=== PATIENT | male | born 1975 | race Caucasian/White ===

== ENCOUNTER 2016-10-29 22:49 | Emergency (ER) | payer OTHER ==
[~2016-10-29] VITALS: Ht 195.6 cm; Wt 81.6 kg
[~2016-10-29 22:49] MED LIST: AMOXIL500 MG PO; AURALGAN 14 ML14 ML AS; DELTASONE20 MG PO; FLEXERIL10 MG PO; MOBIC 15MG15 MG PO
[2016-10-29 22:53] VITALS: BP 139/77
--- NOTE | 2016-10-29 23:19 | RADIOLOGY REPORT ---
EXAMINATION: XR FOOT, RIGHT CLINICAL INFORMATION: Trauma COMPARISON: None TECHNIQUE: AP, lateral, and oblique views of the right foot. FINDINGS: Negative for acute fracture or dislocation. IMPRESSION: No acute fracture or dislocation right foot
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
[2016-10-30] MEDS ORDERED: IBUPROFEN600 M1 PO (00:20)
== END 2016-10-30 00:34 ==
LOC: ERH 22:49
DX: S90.31XA Contusion of right foot, initial encounter (principal); W22.8XXA Striking against or struck by other objects, initial encounter; Y92.9 Unspecified place or not applicable; Y93.9 Activity, unspecified
CPT/HCPCS: 73630-RT; 96372; J1885

== ENCOUNTER 2016-12-08 17:21 | Emergency (ER) | payer OTHER ==
[~2016-12-08] VITALS: Ht 195.6 cm; Wt 81.6 kg
[~2016-12-08 17:21] MED LIST changes: +IBUPROFEN600 M1 PO
--- NOTE | 2016-12-08 18:42 | ED SKIN/ALLERGY COMPLAINT ---
History of Present Illness General Chief Complaint: Skin Rash/ Abcess Stated Complaint: RASH TO NECK Source: patient Exam Limitations: no limitations Vital Signs & Intake/Output Vital Signs & Intake/Output Vital Signs Date Time Temp Pulse Resp B/P B/P Pulse O2 O2 Flow FiO2 Mean Ox Delivery Rate 12/087 97.2 62 16 110/74 97 Room Air 12/08 1900 Room Air 12/08 1730 97.1 61 16 112/75 96 Room Air ED Intake and Output 12/09 0000 12/08 1200 Intake Total Output Total Balance Patient 180 lb Weight Weight Reported by Patient Measurement Method Allergies Coded Allergies: NO KNOWN ALLERGIES (10/30/16) Reconcile Medications Acetic Acid/Antipyrine/Benzo (Auralgan 14 Ml) 14 ML RAS 2-3 GTT TID PRN EAR PAIN Amoxicillin (Amoxil) 500 MG CAP 1 TAB PO TID EAR INFECTION CYCLOBENZAPRINE HCL (Flexeril) 10 MG TAB 1 TAB PO QHS PRN muscle relaxant Avoid operating motor vehicle or heavy machinery Diphenhydramine HCl (Benadryl) 25 MG CAPSULE 1 CAP PO QPM PRN ALLERGIC REACTION Doxycycline Hyclate 100 MG CAPSULE 1 CAP PO BID DERMATITIS Hydrocortisone 2.5 % CREAM..G. 1 MALCOLM TOP BID DERMATITIS apply to affected area(s) Ibuprofen 600 MG TABLET 1 TAB PO TID PRN pain with food Loratadine (Claritin) 10 MG TABLET 1 TAB PO DAILY ALLERGIC REACTION Meloxicam (Mobic 15MG) 15 MG TAB 1 TAB PO DAILY PRN PAIN/INFLAMMATION Methylprednisolone. (Medrol) 4 MG TAB.DS.PK 1 DP PO AD INFLAMMATION 6 on day 1 then reduce by one tablet daily until gone Prednisone (Deltasone) 20 MG TABLET 3 TAB PO DAILY ALLERGIC REACTION Triage Note: PT WITH RASH TO HIS NECK STATE ITS SPREADING. PT REPORTS THAT IT IS ITCHY. 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 Triage Nurses Notes Reviewed? yes Onset: Gradual Duration: constant Timing: recent history Severity: severe Severity Numbers: 7 HPI: Patient is a 41-year-old male who presents emergency room with concerns of a itching burning erythematous rash to the neck region where patient states that he was outside 5 days ago and his symptoms have persisted. Patient did originally notice 2 bumps on his neck to the right lateral region where he squeezed these bumps and clear liquid came out. Patient notes scabbing to the region well-healing. Patient also complains of mild itchy scratchy throat. Patient denies any clear etiology or allergic contacts. Denies any new soaps or detergents new medications or clear allergen etiology. Denies any fever chills shortness of breath tongue swelling and lip swelling throat swelling cough. Patient has not taken any medications for symptoms ([place]) Past History Travel History Traveled to [place] past 21 day No Medical History Any Pertinent Medical History? 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 No ([place]) Review of Systems Review of Systems Constitutional: Reports: no symptoms. EENTM: Reports: no symptoms. Respiratory: Reports: no symptoms. Cardiovascular: Reports: no symptoms. GI: Reports: no symptoms. Genitourinary: Reports: no symptoms. Musculoskeletal: Reports: no symptoms. Skin: Reports: see HPI, rash. Neurological/Psychological: Reports: no symptoms. Hematologic/Endocrine: Reports: no symptoms. Immunologic/Allergic: Reports: no symptoms. All Other Systems: Reviewed and Negative ([place]) Physical Exam Physical Exam General Appearance: no apparent distress, alert Skin: intact Comments: Well-developed well-nourished person in no acute distress HEENT: Normal EENT exam, extraocular motion intact, no nystagmus. Pupils equally round and reactive to light and accommodation. Nose is atraumatic. External auditory canal and Tympanic membranes clear. Pharynx normal. No swelling or edema. No tongue swelling no lip swelling no pharyngeal swelling Cardiovascular: Regular rate and rhythms no murmurs rubs or gallops, normal JVP Respiratory: Chest nontender. No respiratory distress.breath sounds clear to auscultation bilaterally Extremity: No edema, no calf tenderness to palpation, normal and equal pulses. Neuro: Alert oriented x3, motor sensory normal, Skin: No appreciable rash on exposed skin, skin is warm and dry. Psych: Mood and affect is normal, memory and judgment is normal. Diagram Chest, Abdomen, Back: 1) Noted erythematous raised rash 2 well healing skin scab ([place]) Progress Differential Diagnosis: abscess/cellulitis, allergic reaction, anaphylaxis, angioedema, contact dermatitis, drug reaction, erythema multiforme, lyme disease , shingles, urticaria Plan of Care: Patient has no concerns of anaphylaxis or angioedema. Patient does however have concerns of allergic skin reaction to the localized region of the anterior aspect of neck.\ ENT exam was unremarkable. ([place]) Departure Departure Disposition: HOME OR SELF CARE Condition: Stable Clinical Impression Primary Impression: Dermatitis Referrals: ANDREW SOLARES,PEE Miles (PCP/Family) Additional Instructions: As discussed begin the prescriptions of doxycycline, loratadine, Benadryl, Medrol Dosepak and hydrocortisone cream as directed for your symptoms. Prescription is waiting at [facility] pharmacy. If no better in 2 days follow-up with primary care doctor. If symptoms worsen return to emergency room Departure Forms: Customer Survey General Discharge Information Prescriptions: Current Visit Scripts Doxycycline Hyclate 1 CAP PO BID #14 CAP Methylprednisolone. (Medrol) 1 DP PO AD #1 DP 6 on day 1 then reduce by one tablet daily until gone Hydrocortisone 1 MALCOLM TOP BID #60 GM apply to affected area(s) Loratadine (Claritin) 1 TAB PO DAILY #14 TAB Diphenhydramine HCl (Benadryl) 1 CAP PO QPM PRN ALLERGIC REACTION #7 CAP ([place]) PA/TROLLEY CAR OVERHAULER Co-Sign Statement Statement: ED Attending supervision documentation- [] I saw and evaluated the patient. I have also reviewed all the pertinent lab results and diagnostic results. I agree with the findings and the plan of care as documented in the PA's/TROLLEY CAR OVERHAULER's documentation. [X] I have reviewed the ED Record and agree with the PA's/TROLLEY CAR OVERHAULER's documentation. [] Additions or exceptions (if any) to the PAs/TROLLEY CAR OVERHAULER's note and plan are summarized below: [] (NAKIA SOLARES,GISELLE)
[2016-12-08] MEDS ORDERED: CLARITIN10 M1 PO (19:06)
[2016-12-08] MEDS ORDERED: HYDROCORTISO453.6 G2 TOP (19:06)
[2016-12-08] MEDS ORDERED: DOXYCYCLINE HY100 M2 PO (19:06)
[2016-12-08] MEDS ORDERED: MEDROL4 M2 PO (19:06)
[2016-12-08] MEDS ORDERED: BENADRYL25 MG PO (19:06)
[2016-12-08 19:27] VITALS: BP 110/74
== END 2016-12-08 19:27 ==
LOC: ERH 17:21
DX: L25.9 Unspecified contact dermatitis, unspecified cause (principal)